=== PATIENT | male | born 1955 | race Caucasian/White ===

== ENCOUNTER 2016-02-11 14:29 | Inpatient (IN) | payer MEDICARE, OTHER ==
[~2016-02-11] VITALS: Ht 175.3 cm; Wt 136.8 kg
[~2016-02-11 14:29] MED LIST: ACETAMINOPHEN500 MG PO; AMLODIPINE BESYL5 MG PO; ASPIRIN EC325 MG PO; ATENOLOL25 MG PO; ATORVASTATIN CA40 MG PO; FISH OIL + D3 PO; LANTUS SOL100 UNITS/ SC; LIDODERM5 % TOP; LISINOPRIL10 MG PO; METFORMIN HCL500 MG PO; MUPIROCIN2 %; NEURONTIN400 MG PO; NOVOLOG PE100 UNITS/ SC; PERCOCET1 TA4 PO; PLAVIX75 MG PO; PRILOSEC20 MG PO; SERTRALINE HCL50 MG PO; ULORIC80 MG PO
--- NOTE | 2016-02-11 16:48 | DIAGNOSTIC IMAGING REPORT ---
PROCEDURE: XR CHEST 1 VIEW INDICATION: ANASARCA TECHNIQUE: Portable AP view 04:30 p.m. COMPARISON: 12/28/2015 FINDINGS: There is pleural thickening around the right apex and right upper lobe. No acute infiltrates. Heart and mediastinum are normal. Thorax is normal. IMPRESSION: 1. Right upper lobe and right apical pleural thickening. 2. No acute infiltrates.
--- NOTE | 2016-02-11 19:39 | ED NURSING NOTES ---
Clinical Report - Nurses [facility] [address] [place] [address] 02/11/2016 14:30 Patient: CARMITA LAURENT TRIAGE Triage time 14:43. Acuity: LEVEL 3. Chief Complaint: TESTICULAR PAIN and SCROTAL SWELLING. 14:48 02/11/16. SEPSIS SCREEN: Sepsis Screen. Negative (no infection suspected/documented). KHOA COMA SCORE: Khoa Coma Scale: 15- eyes open spontaneously (4); best verbal response- oriented x 4 (5); best motor response- obeys commands (6). --14:49 Erick Graff R.N. 14:43 02/11/16. BP: 159/94. HR: 73. RR: 24. O2 saturation: 95% on room air. Temp: 98.5 F (oral). Pain level now: 04/14. --14:49 Erick Graff R.N. Weight: 136 kg stated. Height/Length: 69 inches Per Patient. BMI: 44.3. --14:44 Erick Graff R.N. Medications AmLODIPine Besylate Oral 5 mg, daily. Atenolol Oral 25 mg, daily. Atorvastatin Calcium Oral 40 mg, daily. Clopidogrel Bisulfate Oral 75 mg. Gabapentin Oral (Capsule 400 mg) 1 capsule, 3x a day. Lantus Subcutaneous 45 units, every am and pm. Lisinopril Oral 40 mg, daily. Mapap Oral (Tablet 500 mg). MetFORMIN HCl Oral 500 mg, 2x a day. Omeprazole Oral 20 mg, daily. Oxycodone-Acetaminophen Oral. Proclitazone. Sertraline HCl Oral 50 mg, daily. Uloric Oral (Tablet 80 mg) 1 tablet, daily. --14:44 Erick Graff R.N. Allergies No Known Drug Allergy. --14:44 Erick Graff R.N. History Arrived by private vehicle. Historian: patient. Onset. (1 weeks ago). PAST MEDICAL HX: ( NOME in right ear). SOCIAL HX: Never smoker. Occasional alcohol use. No drug use. ABUSE ASSESSMENT: No report of abuse. --14:49 Erick Graff R.N. PROBLEMS: Hyperglycemia. Dyspnea. Fractured Phalanx (Toe). Gout. Lower Extremity Pain. Hypercholesterolemia. Tetanus Status. Cellulitis. Bronchitis. Chest Wall Pain. Gastroesophageal Reflux. Immunizations. Diabetes Mellitus. Hypertension. CVA - Cerebrovascular Accident. --14:45 Erick Garff R.N. Interventions To treatment room. --14:49 Erick Graff R.N. PHYSICAL ASSESSMENT 14:56 02/11/16. Ambulatory to room. GENERAL / NEURO / PSYCH: Alert. Oriented X 4. Appears in pain. ( NOME in right ear). HEENT: Mucous membranes are pink. RESPIRATORY: Breath sounds within normal limits. ( respirations labored with any activity, SOB). CVS: Normal heart rate and rhythm. ( Bilat LE 2+ edema). Capillary refill less than 2 seconds. GI / : Diminished bowel sounds in all quadrants. Right-sided and left-sided scrotal swelling with tenderness and erythema. No urethral discharge. ( Abd obese, firm, c/o generalized abd pain.). SKIN: Skin is warm and dry. --14:58 Erick Graff R.N. NURSING PROGRESS NOTES 17:19 02/11/2016 Site #1 started via IV in the right antecubital space with an 20g angiocath, with aseptic technique and good blood return; one attempt. Saline lock flushed with 10 mL saline. --17:24 Cassidy Paz R.N. EKG time: (17:29). EKG was performed by a tech and shown to the ED physician. --17:31 Jaki Vanessa 18:55 02/11/2016 Diltiazem IVP 10 mg given over 5 minute(s) via site #1. Allergies verified and confirmed 5 rights. IV patency established. IV site checked: no pain, redness, or swelling. IV flushed thoroughly pre- and post-medication administration. IVP given by RN. --19:05 Erick Graff R.N. 19:00 02/11/2016 Kayexalate (Sodium Polystyrene Sulfonate) PO Oral Suspension 30 gm given. Allergies verified and confirmed 5 rights. --19:05 Erick Graff R.N. 17:15 02/11/16. BP: 141/113. HR: 147. RR: 24. O2 saturation: 93% on room air. Pain level now: 04/14. --19:20 Erick Graff R.N. 17:45 02/11/16. BP: 123/72. HR: 150. RR: 24. O2 saturation: 94% on room air. Pain level now: 04/14. --19:21 Erick Graff R.N. 18:00 02/11/16. BP: 125/97. HR: 146. RR: 24. O2 saturation: 94% on room air. Pain level now: 04/14. --19:22 Erick Graff R.N. 18:30 02/11/16. BP: 140/95. HR: 144. RR: 24. O2 saturation: 93% on room air. Pain level now: 04/14. --19:23 Erick Graff R.N. 19:00 02/11/16. BP: 136/80. HR: 139. RR: 24. O2 saturation: 94% on room air. Pain level now: 04/14. --19:24 Erick Graff R.N. 19:26 02/11/2016 Diltiazem IVP 10 mg given over 2 minute(s) via site #1. Allergies verified and confirmed 5 rights. IV patency established. IV site checked: no pain, redness, or swelling. IV flushed thoroughly pre- and post-medication administration. IVP given by RN. --19:31 Torres Duong R.N. 19:32 02/11/16. BP: 126/83. HR: 126 (irregularly-irregular). RR: 18. O2 saturation: 93% on room air. --19:33 Torres Duong R.N. 20:2 02/11/16. Patient ID band checked for patient name, birthdate and medical record number: patient confirmed. Clean catch urine collected with return of jeanie-colored clear urine; odor is normal; sample sent to lab for urinalysis and culture. Specimen labeled in the presence of the patient. --20:26 Torres Duong R.N. 21:00 02/11/16. BP: 113/70. HR: 133. RR: 20. O2 saturation: 92% on room air. Pain level now: 03/17. --21:00 Torres Duong R.N. DISPOSITION / DISCHARGE 21:30. Disposition: observation in Acute Care. Transported via stretcher by nurse with IV. Report was given to a nurse via a phone call. Report included patient's care, treatment, medications, reviewed medication reconcilliation, and condition (including any recent changes or anticipated changes). All questions were answered. Report was acknowledged and care was transferred. (Dylon, PABLO). Patient's personal items include: shirt, pants and wallet; items were placed in belongings bag and transported with the patient. --23:27 Torres Duong R.N. 21:15 02/11/16. BP: 116/89. HR: 137 (irregularly-irregular and tachycardic). RR: 22. O2 saturation: 94% on room air. Temp: 98.7 F (oral). Pain level now: 04/14. --23:29 Torres Duong R.N. Departure time: 2129. --23:29 Torres Duong R.N. Locked/Released at 02/11/2016 23:30 by Torres Duong R.N.
--- NOTE | 2016-02-11 19:39 | ED ORDER SUMMARY ---
..... Patient: CARMITA LAURENT OrderSheet [facility] VisitID: [id number] [place] [address] 60y, M Registration Date/Time: 02/11/2016 ORDER SHEET Weight: 136.0 kg (stated) Allergies: No Known Drug Allergy GENERAL ORDERS: Chest 1V Urgent (16:02/11/2016 Sachin VILLALTA) (Ack 16:29 LTapper) (18:54 MCampbell) Trial Consultant (Continuous) (16:02/11/2016 Sachin VILLALTA) (17:11 Carloseck R.N.) CBC w Diff Urgent (16:02/11/2016 Sachin VILLALTA) (Ack 16:29 LTapper) (17:11 Carloseck R.N.) CMP Urgent (16:02/11/2016 Sachin VILLALTA) (Ack 16:29 LTapper) (17:11 DEEPIKAimbeck R.N.) UA-Culture if indicated Urgent (16:02/11/2016 Sachin VILLALTA) (Ack 16:29 LTapper) (20:25 Hailee R.N.) PT with INR Urgent (16:02/11/2016 Sachin VILLALTA) (Ack 16:29 LTapper) (17:11 Carloseck R.N.) PTT Urgent (16:02/11/2016 Sachin VILLALTA) (Ack 16:29 LTapper) (17:11 Carloseck R.N.) Amylase Urgent (16:02/11/2016 Sachin VILLALTA) (Ack 16:29 LTapper) (17:11 DEEPIKAimbeck R.N.) Lipase Urgent (16:02/11/2016 Sachin VILLALTA) (Ack 16:29 LTapper) (17:11 Carloseck R.N.) CPK Urgent (16:02/11/2016 Sachin VILLALTA) (Ack 16:29 LTapper) (17:11 Carloseck R.N.) Troponin-I Urgent (16:02/11/2016 Sachin VILLALTA) (Ack 16:29 LTapper) (17:11 JSimbeck R.N.) BNP Urgent (16:21 02/11/2016 Sachin VILLALTA) (Ack 16:29 LTapper) (17:11 Carloseck R.N.) Ammonia Level Urgent (16:21 02/11/2016 Sachin VILLALTA) (Ack 16:29 LTapper) (17:11 Carloseck R.N.) Pulse oximeter (16:21 02/11/2016 Sachin VILLALTA) (17:11 Carloseck R.N.) EKG - ER Stat (16:21 02/11/2016 Sachin VILLALTA) (Ack 16:29 LTapper) (17:28 Jus R.N.) TSH Urgent (17:36 02/11/2016 Sachin VILLALTA) (Ack 17:43 LTapper) (23:30 Hailee R.N.) Ethyl Alcohol Urgent (18:14 02/11/2016 Sachin VILLALTA) (Ack 18:29 LTapper) (23:30 Jacquielli R.N.) MEDICATION ORDERS: Kayexalate PO 30 gm/120mL (NOW) (18:18 02/11/2016 Sachin VILLALTA) (Ack 18:44 Jus R.N.) (19:05 Jus R.N.) IV FLUIDS: IV Saline Lock (16:21 02/11/2016 Sachin VILLALTA) (17:47 Jus R.N.) Diltiazem IV 10 mg (NOW) (18:18 02/11/2016 Sachin VILLALTA) (Ack 18:44 Jus R.N.) (19:05 Carloseck R.N.) Diltiazem IV 10 mg (HIGH ALERT MEDICATION, NOW) (19:30 02/11/2016 Hailee R.N. verbal order read back to Sachin VILLALTA) (19:31 Hailee R.N.) ORDER SHEET NOTES: [Electronically signed by Torres Duong R.N. (23:30 02/11/2016)] [Electronically signed by Giovani Soto MD (15:43 02/12/2016)] [Electronically locked/signed by Torres Duong R.N. (23:30 02/11/2016)]
--- NOTE | 2016-02-11 19:39 | ED ORDER SUMMARY ---
..... Patient: CARMITA LAURENT OrderSheet [facility] VisitID: [id number] [place] [address] 60y, M Registration Date/Time: 02/11/2016 ORDER SHEET Weight: 136.0 kg (stated) Allergies: No Known Drug Allergy GENERAL ORDERS: Chest 1V Urgent (16:02/11/2016 Sachin VILLALTA) (Ack 16:29 LTapper) (18:54 MCampbell) Dry Wall Plasterer (Continuous) (16:02/11/2016 Sachin VILLALTA) (17:11 Carloseck R.N.) CBC w Diff Urgent (16:02/11/2016 Sachin VILLALTA) (Ack 16:29 LTapper) (17:11 Carloseck R.N.) CMP Urgent (16:02/11/2016 Sachin VILLALTA) (Ack 16:29 LTapper) (17:11 DEEPIKAimbeck R.N.) UA-Culture if indicated Urgent (16:02/11/2016 Sachin VILLALTA) (Ack 16:29 LTapper) (20:25 Hailee R.N.) PT with INR Urgent (16:02/11/2016 Sachin VILLALTA) (Ack 16:29 LTapper) (17:11 Carloseck R.N.) PTT Urgent (16:02/11/2016 Sachin VILLALTA) (Ack 16:29 LTapper) (17:11 Carloseck R.N.) Amylase Urgent (16:02/11/2016 Sachin VILLALTA) (Ack 16:29 LTapper) (17:11 DEEPIKAimbeck R.N.) Lipase Urgent (16:02/11/2016 Sachin VILLALTA) (Ack 16:29 LTapper) (17:11 Carloseck R.N.) CPK Urgent (16:02/11/2016 Sachin VILLALTA) (Ack 16:29 LTapper) (17:11 Carloseck R.N.) Troponin-I Urgent (16:02/11/2016 Sachin VILLALTA) (Ack 16:29 LTapper) (17:11 JSimbeck R.N.) BNP Urgent (16:21 02/11/2016 Sachin VILLALTA) (Ack 16:29 LTapper) (17:11 Carloseck R.N.) Ammonia Level Urgent (16:21 02/11/2016 Sachin VILLALTA) (Ack 16:29 LTapper) (17:11 Carloseck R.N.) Pulse oximeter (16:21 02/11/2016 Sachin VILLALTA) (17:11 Carloseck R.N.) EKG - ER Stat (16:21 02/11/2016 Sachin VILLALTA) (Ack 16:29 LTapper) (17:28 Jus R.N.) TSH Urgent (17:36 02/11/2016 Sachin VILLALTA) (Ack 17:43 LTapper) (23:30 Hailee R.N.) Ethyl Alcohol Urgent (18:14 02/11/2016 Sachin VILLALTA) (Ack 18:29 LTapper) (23:30 Jacquielli R.N.) MEDICATION ORDERS: Kayexalate PO 30 gm/120mL (NOW) (18:18 02/11/2016 Sachin VILLALTA) (Ack 18:44 Jus R.N.) (19:05 Jus R.N.) IV FLUIDS: IV Saline Lock (16:21 02/11/2016 Sachin VILLALTA) (17:47 Jus R.N.) Diltiazem IV 10 mg (NOW) (18:18 02/11/2016 Sachin VILLALTA) (Ack 18:44 Jus R.N.) (19:05 Carloseck R.N.) Diltiazem IV 10 mg (HIGH ALERT MEDICATION, NOW) (19:30 02/11/2016 Hailee R.N. verbal order read back to Sachin VILLALTA) (19:31 Hailee R.N.) ORDER SHEET NOTES: [Electronically signed by Torres Duong R.N. (23:30 02/11/2016)] [Electronically signed by Giovani Soto MD (15:43 02/12/2016)] [Electronically locked/signed by Torres Duong R.N. (23:30 02/11/2016)]
--- NOTE | 2016-02-11 19:39 | ED CLINICAL REPORT ---
Clinical Report - Physicians/Mid Levels [facility] [address] [place] [address] 02/11/2016 14:30 Patient: CARMITA LAURENT Time Seen: 14:40. Arrived- By private vehicle. Historian- patient. History limited by vague historian. HISTORY OF PRESENT ILLNESS Chief Complaint: scrotal swelling. At its maximum, severity described as severe. When seen in the E.D., severity described as severe. This started about 1 week ago and is still present and now worse. It was gradual in onset and has been constant. (. The patient presents with complaints of increased swelling of his scrotum abdomen and legs over the past week. He says he's never experienced any symptoms like this previously. He does have some Concomitant shortness of breath but says that this is mild.). REVIEW OF SYSTEMS No cough. He has had mild difficulty breathing. He has had severe pedal edema involving the right and left leg. All systems otherwise negative, except as recorded above. PAST HISTORY Problems: Hyperglycemia. Dyspnea. Fractured Phalanx (Toe). Gout. Lower Extremity Pain. Hypercholesterolemia. Cellulitis. Bronchitis. Chest Wall Pain. Gastroesophageal Reflux. Diabetes Mellitus. Hypertension. CVA - Cerebrovascular Accident. Medications: AmLODIPine Besylate Oral 5 mg, daily. Atenolol Oral 25 mg, daily. Atorvastatin Calcium Oral 40 mg, daily. Clopidogrel Bisulfate Oral 75 mg. Gabapentin Oral (Capsule 400 mg) 1 capsule, 3x a day. Lantus Subcutaneous 45 units, every am and pm. Lisinopril Oral 40 mg, daily. Mapap Oral (Tablet 500 mg). MetFORMIN HCl Oral 500 mg, 2x a day. Omeprazole Oral 20 mg, daily. Oxycodone-Acetaminophen Oral. Proclitazone. Sertraline HCl Oral 50 mg, daily. Uloric Oral (Tablet 80 mg) 1 tablet, daily. Allergies: No Known Drug Allergy. SOCIAL HISTORY Never smoker. Occasional alcohol use. No drug use. FAMILY HISTORY Denies family medical history. ADDITIONAL NOTES The nursing notes have been reviewed. PHYSICAL EXAM Vital Signs: 02/11/2016 14:43 BP: 159/94. HR: 73. RR: 24. O2 saturation: 95%. Temp: 98.5 F. Pain level now: 04/14. Have been reviewed. Appearance: Alert. Eyes: Pupils equal, round and reactive to light. ENT: Pharynx normal. Neck: Neck supple. CVS: Normal heart rate and rhythm. Heart sounds normal. Respiratory: Decreased air movement. Abdomen: Tenderness. Distention (with a positive fluid wave). Back: Normal inspection. : Severe scrotal swelling. No tenderness, induration, erythema, fluctuance or ulceration. Transillumination possible. Skin: Rash present on the perineum. The rash is macular. Extremities: Bilateral 4+ pitting edema of the lower extremities involving both feet, both ankles and both lower legs. Neuro: Mildly altered mental status: confused. Patient slow to respond. LABS, X-RAYS, AND EKG EKG: Rate: 152. Atrial fibrillation. Non-specific ST segment / T wave abnormalities. Changes present when compared to prior EKG. (02 Dec 2014). The study has been independently viewed by me. Chest X-ray: (IMPRESSION: 1. Right upper lobe and right apical pleural thickening. 2. No acute infiltrates.). The X-rays were interpreted by the radiologist and contemporaneously by me. Laboratory Tests: CBC w Diff: (JAN: 02/11/2016 17:00) ( MsgRcvd 02/11/2016 17:33) Final results Test Result Flag Units (Reference) WHITE BLOOD COUNT 7.8 K/uL (4.5-11.5) RED BLOOD COUNT 3.32 L M/uL (4.50-5.90) HEMOGLOBIN 7.5 L gm/dL (13.5-17.5) HEMATOCRIT 33.3 L % (41.0-53.0) MEAN CELL VOLUME 100 fL (80-100) MEAN CORPUSCULAR HGB 23 L pg (26-34) MEAN CORPUSCULAR HGB CONC 23 L g/dL (31-37) RED CELL DISTRIBUTION WIDTH 14.0 % (11.6-14.8) PLATELET COUNT 162 K/uL (150-400) PT with INR: (JAN: 02/11/2016 17:00) ( MsgRcvd 02/11/2016 18:01) Final results Test Result Flag Units (Reference) INR 1.0 (0.8-1.2) Low Intensity Therapy: INR 1.5-2.0 PT range 18.5-23.1Mod.Intensity Therapy: INR 2.0-3.0 PT range 23.1-31.5High Intensity Therapy: INR 2.5-3.5 PT range 27.4-35.5High Intensity Therapy 2: INR 3.0-4.0 PT range 31.5-39.3 APTT < 21 L SECONDS (24-34) Ethyl Alcohol: (JAN: 02/11/2016 17:00) ( [facility] 02/11/2016 18:25) Final results Test Result Flag Units (Reference) ETHYL ALCOHOL <3 L mg/dL (3-10) Ammonia Level: (JAN: 02/11/2016 17:00) ( [facility] 02/11/2016 17:36) Final results Test Result Flag Units (Reference) AMMONIA 38 H umol/L (11-32) BNP: (JAN: 02/11/2016 17:00) ( [facility] 02/11/2016 17:51) Final results Test Result Flag Units (Reference) B-TYPE NATRIURETIC PEPTIDE 104 H pg/ml (5-100) CMP: (JAN: 02/11/2016 17:00) ( [facility] 02/11/2016 17:36) Final results Test Result Flag Units (Reference) GLUCOSE 95 mg/dL (70-110) BUN 19 H mg/dL (7-18) CREATININE 1.0 mg/dL (0.6-1.3) Estimated GFR >60 mL/min Estimated GFR- >60 mL/min Note: Persistent reduction over 3 months in eGFR<60 mL/min/1.73 m2 defines CKD. Patients with eGFR values>=60 mL/min/1.73 m2 may also have CKD if evidence ofpersistent proteinuria. Additional information may be foundat www.kidney.org. SODIUM 143 mmol/L (136-145) POTASSIUM 5.0 mmol/L (3.5-5.1) CHLORIDE 109 H mmol/L (98-107) CARBON DIOXIDE 27 mmol/L (21-32) CALCIUM 8.7 mg/dL (8.5-10.1) TOTAL PROTEIN 7.1 g/dL (6.4-8.2) ALBUMIN 3.1 L g/dL (3.3-5.0) BILIRUBIN, TOTAL 0.3 mg/dL (0.0-1.0) ALKALINE PHOSPHATASE 95 U/L (46-116) AST (SGOT) 29 U/L (15-37) ALT (SGPT) 54 U/L (12-78) LIPASE 140 U/L (73-393) AMYLASE 46 U/L (25-115) CPK 117 U/L (24-260) TROPONIN I <0.05 ng/mL (0.00-1.5) TROPONIN REFERENCE RANGE:<0.1 NEGATIVE0.1-1.5 INDETERMINANT>1.5 POSITIVE . PROGRESS AND PROCEDURES Discussed case with on-call health care provider, (Pavithra - He saw the patient n the ER). Reviewed test results and need for additional work-up. Agreed upon treatment plan, need for patient follow-up and decision to place in observation. Patient/family counseled. Old medical records reviewed. Disposition: Admitted. CLINICAL IMPRESSION New onset atrial fibrillation. Anasarca. (Electronically signed by Giovani Soto MD 02/12/2016 15:43)
--- NOTE | 2016-02-11 21:06 | Progress Note ---
Subjective General 60 year old who presented to the ER with swelling to his groin and found to have afib RVR. Hx of stroke,HTN, DM. Plan to increse on beta candida, stop ca Channel candida, echo, diuresis.
[2016-02-11 21:53] VITALS: BP 127/77
--- NOTE | 2016-02-11 22:40 | HISTORY AND PHYSICAL ---
ADMITTED: 02/11/2016 CHIEF COMPLAINT: 1. Swelling of his groin and penis HISTORY OF PRESENT ILLNESS: The patient is a 60-year-old male who presented to the emergency department after having significant swelling of his genitalia. He was having some swelling to the point of discomfort. This has been going on for the last 1 week or so and got to the point that he needed to have evaluation. He otherwise has been feeling pretty well. MEDICAL/SURGICAL HISTORY: Past medical history: He has had hyperglycemia, dyspnea, fractured phalanx, gout, lower extremity pain, hypercholesterolemia, cellulitis, bronchitis, chest wall pain, GERD, diabetes, hypertension, CVA. Past surgical history: Appendectomy. MEDICATIONS: 1. Amlodipine 5 mg p.o. daily. 2. Atenolol 25 mg p.o. daily. 3. Atorvastatin 40 mg p.o. daily. 4. Plavix 75 mg p.o. daily. 5. Gabapentin 400 mg p.o. t.i.d. 6. Lantus 45 mg p.o. a.m., at bedtime. 7. Lisinopril 40 mg p.o. daily. 8. Tylenol 500 mg p.o. q.4 hours p.r.n. pain. 9. Metformin 500 mg p.o. b.i.d. 10. Omeprazole 20 mg p.o. daily. 11. Oxycodone 5/325 one p.o. 4 hours p.r.n. pain. 12. Pioglitazone, question dosing 13. Sertraline 50 mg p.o. daily. 14. Uloric 80 mg 1 p.o. daily. ALLERGIES: 1. NONE KNOWN. SOCIAL HISTORY: He is single. He does not smoke, does not drink, does not use any drugs. FAMILY HISTORY: Mom had brain tumor, of a stroke. CODE STATUS: FULL. REVIEW OF SYSTEMS: He states that he has got some chronic left leg swelling. He also has a history of stroke with right facial droop. He has had some dizziness with standing recently and some nausea as well. He otherwise denies any increase in chronic medical problems such as difficulty breathing, which he always has a little bit. He has got no cough. He has had pedal edema in the past. PHYSICAL EXAMINATION: GENERAL: He is an alert male who appears to be in no significant distress. He is oriented x3. He is alert. VITAL SIGNS: Blood pressure of 159/94, heart rate of 73, respirations 24, saturating 95% on room air, temperature is 98.5. HEENT: Pupils equal, round, reactive to light. Oropharynx is clear. He has got a little bit of a right facial droop. NECK: Supple without lymphadenopathy. HEART: Slightly irregularly irregular. ABDOMEN: Swollen, obese and no significant tenderness. BACK: Normal inspection. GENITOURINARY: Has lots of scrotal swelling and induration, some mild erythema as well, no fluctuance or ulceration. SKIN: There is a rash on his perineum that is macular, giving redness in color. EXTREMITIES: 4+ edema bilaterally at both legs, shins, feet. LAB/IMAGING: EKG: Shows atrial fibrillation with a rapid ventricular rate in the 150s, nonspecific ST-T wave changes. Chest x-ray: Shows right upper lobe and right apical thickening, no acute infiltrates. White count of 7.8, hematocrit of 33.3, platelets of 162,000. INR of 1.0. PTT less than 21. Alcohol less than 3. Ammonia 38. BNP of 104. Glucose 95, BUN of 19, creatinine of 1, sodium 143, potassium 5.0, chloride 109, HCO3 27, calcium 8.7, total protein 7.1. Albumin 3.1, total bili 0.3, alk phos 95, AST of 29, ALT of 54, lipase 140, amylase 46. CPK of 117. Troponin I less than 0.05. IMPRESSION: 1. New onset atrial fibrillation with a rapid ventricular rate. 2. Diabetes. 3. Anasarca. 4. Hypertension. 5. History of stroke. PLAN: 1. We will stop pioglitazone, as well as amlodipine as both these may cause increased swelling. 2. Check on an echocardiogram. 3. Start Lasix. 4. Increase on beta-candida with the goal heart rate 90-120 range. He is currently not having any symptoms. 5. Rule out myocardial infarction and anticipate that he will be in the hospital a couple days, getting his heart rate under better control, as well as getting the studies needed for his new onset atrial fibrillation. Admit him as an inpatient. 6. Code status: FULL.
[2016-02-12 02:30] VITALS: BP 124/87
[2016-02-12 07:26] VITALS: BP 145/78; BP 15/78
[2016-02-12 09:48] VITALS: BP 141/92
[2016-02-12 14:35] VITALS: BP 148/101
--- NOTE | 2016-02-12 15:05 | Progress Note ---
Subjective General Pt. is admitted with marked scrotal edema and a fib with RVR. He was stgarted on metoprolol. Heart rate this PM has gone up to 130-150. Pt. is feeling OK. No major weakness or chest pain. Other problems include DM and remote CVA and hypertension. Constitutional Weakness. Eyes Denies: Vision Change. Respiratory SOB w/exertion. Cardiovascular Light-headedness. Gastrointestinal Denies: Nausea, Vomiting, Abdominal Pain, Diarrhea. Genitourinary Frequency. Skin Denies: Rash, Lesions, Bruising. Neurological Weakness. Denies: Change in speech, Confusion. Physical Exam Vital Signs / I&Os Vital Signs Date Time Temp Pulse Resp B/P Pulse O2 O2 Flow FiO2 Ox Delivery Rate 02/11 1435 98.4 151 22 148/101 96 Nasal 2.0 Cannula 02/11 0948 63 24 141/92 96 Nasal 2.0 Cannula 02/11 0915 Nasal 2.0 Cannula 02/11 07 97.9 76 20 145/78 95 Nasal 2.0 Cannula 02/11 0230 98.6 80 18 124/87 95 Nasal 2.0 Cannula 02/11 0000 2.0 02/10 2153 97.7 119 20 127/77 97 Nasal 2.0 Cannula I&O 02/10 0800 02/10 1600 02/11 0000 Intake Total Output Total Balance General Appearance Alert, Oriented X3, Cooperative, No acute distress Lungs Clear to auscultation, Normal air movement Cardiovascular irreg-irreg no distinct M. Abdomen Normal bowel sounds, Soft, No tenderness Pelvic marked edema of scrotum and penis Extremities +2-+3 edema L, +2 edema R Neurological Normal speech, Sensation intact, R facial weakness LAB Results Laboratory Tests 02/10 02/10 02/10 02/10 1700 1700 1700 1700 Chemistry Plasma Sodium (136 - 145 mmol/L) 143 Plasma Potassium (3.5 - 5.1 mmol/L) 5.0 Plasma Chloride (98 - 107 mmol/L) 109 CO2 (Enzymatic) (21 - 32 mmol/L) 27 BUN (7 - 18 mg/dL) 19 Creatinine (0.6 - 1.3 mg/dL) 1.0 Est GFR ( Amer) (mL/min) >60 Est GFR (Non-Af Amer) (mL/min) >60 Glucose (70 - 110 mg/dL) 95 Plasma Calcium (8.5 - 10.1 mg/dL) 8.7 Total Bilirubin (0.0 - 1.0 mg/dL) 0.3 AST (15 - 37 U/L) 29 ALT (12 - 78 U/L) 54 Alkaline Phosphatase (46 - 116 U/L) 95 Ammonia (11 - 32 umol/L) 38 Creatine Kinase (24 - 260 U/L) 117 Troponin (0.00 - 1.5 ng/mL) <0.05 B-Natriuretic Peptide (5 - 100 pg/ml) 104 Total Protein (6.4 - 8.2 g/dL) 7.1 Albumin (3.3 - 5.0 g/dL) 3.1 Amylase (25 - 115 U/L) 46 Lipase (73 - 393 U/L) 140 TSH 3rd Generation (0.30 - 3.74 uIU/mL) 2.079 Coagulation INR (0.8 - 1.2) 1.0 APTT (24 - 34 SECONDS) < 21 Hematology WBC (4.5 - 11.5 K/uL) 7.8 RBC (4.50 - 5.90 M/uL) 3.32 Hgb (13.5 - 17.5 gm/dL) 7.5 Hct (41.0 - 53.0 %) 33.3 MCV (80 - 100 fL) 100 MCH (26 - 34 pg) 23 RDW (11.6 - 14.8 %) 14.0 Plt Count, EDTA (150 - 400 K/uL) 162 PUBS MCHC (31 - 37 g/dL) 23 Toxicology Plasma/Serum Ethyl Alc (3 - 10 mg/dL) <3 02/100 0502 Chemistry Troponin (0.00 - 1.5 ng/mL) <0.05 Cancelled Urines Urine Color YELLOW Urine Appearance CLEAR Urine pH (5.0 - 8.0) 5.5 Ur Specific [place] (1.010 - 1.030) >= 1.030 Urine Protein (NEGATIVE) 3+ Urine Ketones (NEGATIVE) NEGATIVE Urine Blood (NEGATIVE) TRACE-INTACT Urine Nitrite (NEGATIVE) NEGATIVE Urine Bilirubin (NEGATIVE) NEGATIVE Urine Urobilinogen (0.2 - 1.0 EU/dL) 0.2 Ur Leukocyte Esterase (NEGATIVE) NEGATIVE Urine RBC (0 - 1 rbc/hpf) 1-3 Urine WBC (0 - 1 wbc/hpf) RARE Ur Epithelial Cells (0 - 5 EPI/hpf) 0-1 Urine Bacteria (NONE SEEN) NONE SEEN Urine Glucose (NEGATIVE) 1+ Urine Comment CULT NOT INDICATED 02/11 02/11 0541 1258 Chemistry Plasma Sodium (136 - 145 mmol/L) 145 Plasma Potassium (3.5 - 5.1 mmol/L) 3.4 Plasma Chloride (98 - 107 mmol/L) 112 CO2 (Enzymatic) (21 - 32 mmol/L) 28 BUN (7 - 18 mg/dL) 21 Creatinine (0.6 - 1.3 mg/dL) 1.2 Est GFR ( Amer) (mL/min) >60 Est GFR (Non-Af Amer) (mL/min) >60 Glucose (70 - 110 mg/dL) 59 Plasma Calcium (8.5 - 10.1 mg/dL) 8.2 Troponin (0.00 - 1.5 ng/mL) <0.05 0.06 Hematology WBC (4.5 - 11.5 K/uL) 12.9 RBC (4.50 - 5.90 M/uL) 3.64 Hgb (13.5 - 17.5 gm/dL) 11.8 Hct (41.0 - 53.0 %) 36.7 MCV (80 - 100 fL) 101 MCH (26 - 34 pg) 33 RDW (11.6 - 14.8 %) 14.4 Neut % (Auto) (50 - 75 %) 53.8 Lymph % (Auto) (25 - 40 %) 34.7 [place] % (Auto) (3 - 14 %) 8.3 Eos % (Auto) (0 - 4 %) 2.6 Baso % (Auto) (0 - 2 %) 0.6 Plt Count, EDTA (150 - 400 K/uL) 223 PUBS MCHC (31 - 37 g/dL) 32 Assessment and Plan Problem List 1. Atrial fibrillation with RVR Plan Will give metoprolol 5 mg IV now and 25 mg po. Will start digoxin. May need diltiazem drip if incrased po does not work. 2. Hypertension Status Chronic Onset Date Unknown Plan Bp upper range of nl. May improve with increased metoprolol 3. Diabetes Status Chronic Onset Date Unknown Plan BS OK with current Tx.Continue with no changes. 4. CVA (cerebral vascular accident) Plan Continjue Xarelto 5. Anasarca Plan Will try adding metolazolne and giving IV lasix this pm. Add po K+.
--- NOTE | 2016-02-12 15:43 | ED MAR SUMMARY ---
..... Medication Administration Record [facility] [address] [place] [address] Patient: CARMITA LAURENT Visit ID: [id number] 60y, M Weight: 136.0 kg Height/Length: 69 in BMI: 44.3 ALLERGIES: No Known Drug Allergy Given 18:55 02/11/2016 Erick Graff R.N. Medication Administered: DILTIAZEM [IVP], Dose: 10 mg IVP over 5 minute(s), Site: #1 right AC. Medication Ordered: Diltiazem IV 10 mg (NOW). Given 19:00 02/11/2016 Erick Graff R.N. Medication Administered: KAYEXALATE [PO] (SODIUM POLYSTYRENE SULFONATE), Dose: 30 gm Oral Suspension PO. Medication Ordered: Kayexalate PO 30 gm/120mL (NOW). Given 19:26 02/11/2016 Torres Duong R.N. Medication Administered: DILTIAZEM [IVP], Dose: 10 mg IVP over 2 minute(s), Site: #1 right AC. Medication Ordered: Diltiazem IV 10 mg (HIGH ALERT MEDICATION, NOW).
--- NOTE | 2016-02-12 15:43 | ED MAR SUMMARY ---
..... Medication Administration Record [facility] [address] [place] [address] Patient: CARMITA LAURENT Visit ID: [id number] 60y, M Weight: 136.0 kg Height/Length: 69 in BMI: 44.3 ALLERGIES: No Known Drug Allergy Given 18:55 02/11/2016 Erick Graff R.N. Medication Administered: DILTIAZEM [IVP], Dose: 10 mg IVP over 5 minute(s), Site: #1 right AC. Medication Ordered: Diltiazem IV 10 mg (NOW). Given 19:00 02/11/2016 Erick Graff R.N. Medication Administered: KAYEXALATE [PO] (SODIUM POLYSTYRENE SULFONATE), Dose: 30 gm Oral Suspension PO. Medication Ordered: Kayexalate PO 30 gm/120mL (NOW). Given 19:26 02/11/2016 Torres Duong R.N. Medication Administered: DILTIAZEM [IVP], Dose: 10 mg IVP over 2 minute(s), Site: #1 right AC. Medication Ordered: Diltiazem IV 10 mg (HIGH ALERT MEDICATION, NOW).
--- NOTE | 2016-02-12 15:43 | ED MED RECONCILIATION SUMMARY ---
Patient: CARMITA LAURENT Medication Reconciliation Report [facility] VisitID: [id number] [place] [address] 60y, M Registration Date/Time: 02/11/2016 Weight: 136.0 kg Height/Length: 69 in. BMI: 44.3 ALLERGIES: No Known Drug Allergy The patient's Home Medications are listed below: THE FOLLOWING MEDICATIONS NEED TO BE RECONCILED: AmLODIPine Besylate Oral 5 mg, daily Atenolol Oral 25 mg, daily Atorvastatin Calcium Oral 40 mg, daily Clopidogrel Bisulfate Oral 75 mg Gabapentin Oral (400 mg) 1 capsule, 3x a day Lantus Subcutaneous 45 units, every am and pm Lisinopril Oral 40 mg, daily Mapap Oral (500 mg) MetFORMIN HCl Oral 500 mg, 2x a day Omeprazole Oral 20 mg, daily Oxycodone-Acetaminophen Oral Proclitazone Sertraline HCl Oral 50 mg, daily Uloric Oral (80 mg) 1 tablet, daily The source(s) of the original Home Medication information: Not obtained. The following Medications were given to the patient in the Emergency Department: Diltiazem [IVP] IVP 10 mg, administered: 02/11/2016 6:55:00 PM Kayexalate [PO] PO 30 gm, administered: 02/11/2016 7:00:00 PM Diltiazem [IVP] IVP 10 mg, administered: 02/11/2016 7:26:00 PM The following Medications were prescribed to the patient: None.
--- NOTE | 2016-02-12 15:43 | ED DISCHARGE INSTRUCTIONS ---
Patient: CARMITA LAURENT Kayy General Instructions [facility] VisitID: [id number] [address] [place] [address] 60y, M Registration Date/Time: 02/11/2016 New onset atrial fibrillation. Anasarca. (Electronically signed by Gioavni Soto MD 02/12/2016 15:43)
--- NOTE | 2016-02-12 15:43 | ED MED RECONCILIATION SUMMARY ---
Patient: CARMITA LAURENT Medication Reconciliation Report [facility] VisitID: [id number] [place] [address] 60y, M Registration Date/Time: 02/11/2016 Weight: 136.0 kg Height/Length: 69 in. BMI: 44.3 ALLERGIES: No Known Drug Allergy The patient's Home Medications are listed below: THE FOLLOWING MEDICATIONS NEED TO BE RECONCILED: AmLODIPine Besylate Oral 5 mg, daily Atenolol Oral 25 mg, daily Atorvastatin Calcium Oral 40 mg, daily Clopidogrel Bisulfate Oral 75 mg Gabapentin Oral (400 mg) 1 capsule, 3x a day Lantus Subcutaneous 45 units, every am and pm Lisinopril Oral 40 mg, daily Mapap Oral (500 mg) MetFORMIN HCl Oral 500 mg, 2x a day Omeprazole Oral 20 mg, daily Oxycodone-Acetaminophen Oral Proclitazone Sertraline HCl Oral 50 mg, daily Uloric Oral (80 mg) 1 tablet, daily The source(s) of the original Home Medication information: Not obtained. The following Medications were given to the patient in the Emergency Department: Diltiazem [IVP] IVP 10 mg, administered: 02/11/2016 6:55:00 PM Kayexalate [PO] PO 30 gm, administered: 02/11/2016 7:00:00 PM Diltiazem [IVP] IVP 10 mg, administered: 02/11/2016 7:26:00 PM The following Medications were prescribed to the patient: None.
--- NOTE | 2016-02-12 15:43 | ED DISCHARGE INSTRUCTIONS ---
Patient: CARMITA LAURENT Kayy General Instructions [facility] VisitID: [id number] [address] [place] [address] 60y, M Registration Date/Time: 02/11/2016 New onset atrial fibrillation. Anasarca. (Electronically signed by Giovani Soto MD 02/12/2016 15:43)
[2016-02-12 18:11] VITALS: BP 92/52
[2016-02-12 18:41] VITALS: BP 121/67
[2016-02-13 00:14] VITALS: BP 121/55
[2016-02-13 02:01] VITALS: BP 143/77
[2016-02-13 07:55] VITALS: BP 143/83
--- NOTE | 2016-02-13 09:12 | Progress Note ---
Subjective General 60 year old who presented to the ER with swelling to his groin and found to have afib RVR. Hx of stroke,HTN, DM. Increased on beta candida, stop ca Channel candida, echo-was ok, diuresis Patient states that he is doing at this time. Groin a little better less swollen and softer. No cp,sob. Physical Exam Vital Signs / I&Os Vital Signs Date Time Temp Pulse Resp B/P Pulse O2 O2 Flow FiO2 Ox Delivery Rate 02/12 0755 98.6 67 24 143/83 92 Nasal 2.5 Cannula 02/12 0201 98.8 67 26 143/77 96 Nasal 2.5 Cannula 02/12 0014 98.8 76 21 121/55 91 Nasal 2.5 Cannula 02/11 2045 Nasal 2.5 Cannula 02/11 2040 2.5 02/11 1841 98.8 75 28 121/67 95 Nasal 2.5 Cannula 02/11 1811 98.8 83 20 92/52 98 Bipap 45 02/11 1518 148 02/11 1435 98.4 151 22 148/101 96 Nasal 2.0 Cannula 02/11 1006 2.0 02/11 0948 63 24 141/92 96 Nasal 2.0 Cannula 02/11 0915 Nasal 2.0 Cannula I&O 02/12 0000 02/11 1600 02/11 0800 Intake Total 360 960 600 Output Total 875 1000 550 Balance -515 -40 50 General Appearance Alert, Cooperative Lungs Clear to auscultation, Normal air movement Cardiovascular Regular rate and rhythm Abdomen Soft, obese non tender Pelvic swollen scrotum and penis Extremities +1 edema. LAB Results Laboratory Tests 02/12 02/11 0400 1258 Chemistry Plasma Sodium (136 - 145 mmol/L) 144 Plasma Potassium (3.5 - 5.1 mmol/L) 3.7 Plasma Chloride (98 - 107 mmol/L) 109 CO2 (Enzymatic) (21 - 32 mmol/L) 29 BUN (7 - 18 mg/dL) 29 Creatinine (0.6 - 1.3 mg/dL) 1.3 Est GFR ( Amer) (mL/min) >60 Est GFR (Non-Af Amer) (mL/min) 59.85 Glucose (70 - 110 mg/dL) 191 Plasma Calcium (8.5 - 10.1 mg/dL) 8.2 Plasma Magnesium (1.8 - 2.4 mg/dL) 1.3 Troponin (0.00 - 1.5 ng/mL) 0.06 Hematology WBC (4.5 - 11.5 K/uL) 13.4 RBC (4.50 - 5.90 M/uL) 3.55 Hgb (13.5 - 17.5 gm/dL) 11.5 Hct (41.0 - 53.0 %) 35.7 MCV (80 - 100 fL) 101 MCH (26 - 34 pg) 33 RDW (11.6 - 14.8 %) 14.4 Neut % (Auto) (50 - 75 %) 48.1 Lymph % (Auto) (25 - 40 %) 37.3 [place] % (Auto) (3 - 14 %) 10.6 Eos % (Auto) (0 - 4 %) 3.3 Baso % (Auto) (0 - 2 %) 0.7 Plt Count, EDTA (150 - 400 K/uL) 202 PUBS MCHC (31 - 37 g/dL) 32 Assessment and Plan Problem List 1. Diabetes Status Chronic Onset Date Unknown Plan Stable overall. BS up and down some. 2. Anasarca Plan Has some improvement increase on the diuretics. 3. Atrial fibrillation with RVR Plan Is now in sinus. Watch on bmp. Check sleep eval after d/c
[2016-02-13 11:08] VITALS: BP 134/75
[2016-02-13 18:50] VITALS: BP 145/77
[2016-02-13 23:27] VITALS: BP 144/82
[2016-02-14 03:08] VITALS: BP 149/79
[2016-02-14 06:50] VITALS: BP 135/91
[2016-02-14 11:24] VITALS: BP 145/79
[2016-02-14 14:40] VITALS: BP 126/72
[2016-02-14 18:35] VITALS: BP 125/71
--- NOTE | 2016-02-14 19:12 | Progress Note ---
Subjective General patient is seen at the bedside says he is feeling better, anasarca improving, now in normal sinus rhythm with normal rate, renal function is elevated Constitutional Denies: Fever, Chills, Sweats, Weakness. Eyes Denies: Pain, Conjunctival Inflammation, Eyelid Inflammation, Redness. ENT Denies: Nasal Discharge, Nasal Congestion, Mouth Pain, Mouth Swelling, Throat Pain, Throat Swelling. Respiratory SOB w/exertion. Denies: Cough, Wheezing, Hemoptysis. Cardiovascular Edema. Denies: Chest Pain, Palpitations, Orthopnea, PND. Gastrointestinal Denies: Nausea, Vomiting, Abdominal Pain, Diarrhea, Constipation. Genitourinary Denies: Dysuria (c/o scrotal swelling/no pain), Frequency, Incontinence, Hematuria. Musculoskeletal Denies: Back Pain. Skin Denies: Rash, Lesions, Jaundice. Neurological Denies: Weakness, Numbness, Incoordination, Change in speech, Confusion, Seizures. Physical Exam Vital Signs / I&Os Vital Signs Date Time Temp Pulse Resp B/P Pulse O2 O2 Flow FiO2 Ox Delivery Rate 02/13 1835 99.0 63 24 125/71 93 Nasal 3.0 Cannula 02/13 1440 98.1 61 20 126/72 94 Nasal 3.0 Cannula 02/13 1356 64 02/13 1124 145/79 97 Nasal 3.0 Cannula 02/13 1048 97.9 74 19 95 Nasal 3.0 Cannula 02/13 0800 Nasal 3.0 Cannula 02/13 0650 98.6 63 22 135/91 94 Room Air 02/13 0308 97.7 70 24 149/79 94 Nasal 3.0 Cannula 02/13 0130 3.0 02/13 0030 93 Nasal 3.0 Cannula 02/12 2327 97.7 71 23 144/82 94 Room Air 02/12 1928 Room Air I&O 02/12 0800 02/12 1600 02/13 0000 Intake Total 360 1049 Output Total 900 900 750 Balance -900 -540 299 General Appearance Alert, Oriented X3, No acute distress HEENT Normal exam, PERRLA, Moist mucous membranes Lungs bilaterla crackles Neck Normal exam, No JVD Cardiovascular Regular rate and rhythm, Normal S1 and S2 Abdomen Normal bowel sounds, Soft, No tenderness, No guarding Extremities No edema Skin No Significant Lesions Neurological No lateralizing signs LAB Results Laboratory Tests 02/13 02/13 0405 0405 Chemistry Plasma Sodium (136 - 145 mmol/L) 141 Plasma Potassium (3.5 - 5.1 mmol/L) 3.7 Plasma Chloride (98 - 107 mmol/L) 106 CO2 (Enzymatic) (21 - 32 mmol/L) 30 BUN (7 - 18 mg/dL) 36 Creatinine (0.6 - 1.3 mg/dL) 1.4 Est GFR ( Amer) (mL/min) >60 Est GFR (Non-Af Amer) (mL/min) 54.94 Glucose (70 - 110 mg/dL) 204 Plasma Calcium (8.5 - 10.1 mg/dL) 8.4 Plasma Magnesium (1.8 - 2.4 mg/dL) 1.4 Total Bilirubin (0.0 - 1.0 mg/dL) 0.3 AST (15 - 37 U/L) 35 ALT (12 - 78 U/L) 67 Alkaline Phosphatase (46 - 116 U/L) 86 Total Protein (6.4 - 8.2 g/dL) 6.7 Albumin (3.3 - 5.0 g/dL) 2.6 Hematology WBC (4.5 - 11.5 K/uL) 12.4 RBC (4.50 - 5.90 M/uL) 3.65 Hgb (13.5 - 17.5 gm/dL) 11.9 Hct (41.0 - 53.0 %) 36.7 MCV (80 - 100 fL) 101 MCH (26 - 34 pg) 33 RDW (11.6 - 14.8 %) 13.7 Neut % (Auto) (50 - 75 %) 49.0 Lymph % (Auto) (25 - 40 %) 34.8 [place] % (Auto) (3 - 14 %) 10.9 Eos % (Auto) (0 - 4 %) 4.6 Baso % (Auto) (0 - 2 %) 0.7 Plt Count, EDTA (150 - 400 K/uL) 205 PUBS MCHC (31 - 37 g/dL) 32 Toxicology Digoxin (0.9 - 2.0 ng/mL) 0.6
[2016-02-14 23:27] VITALS: BP 148/71
[2016-02-15 03:31] VITALS: BP 138/79
[2016-02-15 07:20] VITALS: BP 137/73
[2016-02-15 10:26] VITALS: BP 123/68
[2016-02-15 15:21] VITALS: BP 132/84
--- NOTE | 2016-02-15 17:32 | DIAGNOSTIC IMAGING REPORT ---
REFERRING PHYSICIAN/PROVIDER: Ramon Arshad MD CONSULTING [employer]ERERS HELPER: Baldemar Lorenzo MD PROCEDURE: M-mode 2D echocardiography with spectral and color flow Doppler TECHNICAL QUALITY: The study quality was technically difficult secondary to body habitus. INDICATION: afib RHYTHM DURING PROCEDURE: The patient was in normal sinus rhythm. INTERPRETATIONS: LEFT VENTRICLE: The left ventricle is normal size. There is moderate concentric left ventricular hypertrophy. The interventricular septum is measured at 1.4 cm and the left ventricular posterior wall is measured at 1.6 cm during end diastole. Left ventricular systolic function is normal. The ejection fraction is estimated to be 60-65%. There are no obvious focal wall motion abnormalities noted but poor endocardial definition reduces the sensitivity for the detection of such. Assessment of diastolic parameters indicates normal left ventricular diastolic function and normal filling pressures. RIGHT VENTRICLE: The right ventricle is grossly normal size. The right ventricle grossly appears normal in size with probable normal systolic function. ATRIA: The left atrium grossly appears normal in size. The right atrium is mildly dilated. The interatrial septum is intact with no evidence for an atrial septal defect. MITRAL VALVE: The mitral valve is grossly normal. There is no mitral regurgitation noted. AORTIC VALVE: The aortic valve is trileaflet. Aortic valve opens well. The aortic valve is slightly calcified. There is no evidence of significant valvular stenosis. TRICUSPID VALVE: The tricuspid valve is not well visualized, but is grossly normal. There is trace regurgitation. Pulmonary arteries could not be estimated because of the lack of a measurable TR jet velocity. PULMONIC VALVE: The pulmonic valve is not well seen but is grossly normal. There is trace pulmonic regurgitation. GREAT VESSELS: The aortic root is normal size at 3.9 cm. The ascending aorta is mildly enlarged at 3.9 cm. The inferior vena cava was not well visualized. PERICARDIUM: There is no pericardial effusion. IMPRESSION: 1. The left ventricle is normal size. There is moderate concentric left ventricular hypertrophy. LV systolic function is normal with an estimated ejection fraction of 60-65%. There are no obvious focal wall motion abnormalities. 2. The right ventricle is grossly normal size with probable normal systolic function. 3. The left atrium grossly appears normal in size. The right atrium is mildly dilated. 4. The aortic root is normal size. 5. There is no evidence of significant valvular heart disease.
[2016-02-15 18:32] VITALS: BP 125/73
[2016-02-15 22:25] VITALS: BP 128/69
--- NOTE | 2016-02-15 23:02 | Progress Note ---
Subjective General patient say s he is feling better then before Constitutional Denies: Fever, Chills, Sweats, Weakness. Eyes Denies: Vision Change, Conjunctival Inflammation. Respiratory Cough, SOB w/exertion. Denies: Wheezing, Hemoptysis, Pleuritic Pain. Cardiovascular Denies: Chest Pain, Palpitations, Orthopnea, PND, Edema. Gastrointestinal Denies: Nausea, Vomiting, Abdominal Pain, Diarrhea, Constipation, Melena. Genitourinary Denies: Dysuria, Frequency, Incontinence, Hematuria, Retention. Musculoskeletal Denies: Back Pain. Neurological Denies: Weakness, Numbness, Incoordination, Change in speech, Confusion, Seizures. Physical Exam Vital Signs / I&Os Vital Signs Date Time Temp Pulse Resp B/P Pulse O2 O2 Flow FiO2 Ox Delivery Rate 02/14 2225 98.6 64 24 128/69 96 Nasal 3.0 Cannula 02/14 2030 3.0 02/14 1832 99.7 61 26 125/73 92 Nasal 3.0 Cannula 02/14 1521 98.4 63 20 132/84 95 Nasal 3.0 Cannula 02/14 1425 64 02/14 1026 98.4 62 26 123/68 95 Nasal 3.0 Cannula 02/14 0800 Nasal 3.0 Cannula 02/14 0744 3.0 02/14 0720 97.5 64 25 137/73 91 Nasal 3.0 Cannula 02/14 0331 98.1 64 24 138/79 95 Mask 3.0 02/13 2327 98.8 65 24 148/71 93 Nasal 3.0 Cannula I&O 02/13 0800 02/13 1600 02/14 0000 Intake Total 240 600 660 Output Total 7491 718 7573 Balance -1110 -250 -590 General Appearance Alert, Oriented X3, No acute distress HEENT Normal exam, PERRLA, Moist mucous membranes Lungs Clear to auscultation Neck Normal exam, No JVD Cardiovascular Regular rate and rhythm, Normal S1 and S2 Abdomen Normal bowel sounds, Soft, No tenderness, No guarding Extremities bilateral lower extrmity oedema improved Neurological No lateralizing signs LAB Results Laboratory Tests 02/14 02/14 02/14 0455 0500 0500 Chemistry Plasma Sodium (136 - 145 mmol/L) 142 Plasma Potassium (3.5 - 5.1 mmol/L) 4.2 Plasma Chloride (98 - 107 mmol/L) 108 CO2 (Enzymatic) (21 - 32 mmol/L) 30 BUN (7 - 18 mg/dL) 38 Creatinine (0.6 - 1.3 mg/dL) 1.2 Est GFR ( Amer) (mL/min) >60 Est GFR (Non-Af Amer) (mL/min) >60 Glucose (70 - 110 mg/dL) 197 Hemoglobin A1c % (4.5 - 6.2 %) 8.7 Plasma Calcium (8.5 - 10.1 mg/dL) 8.5 Plasma Magnesium (1.8 - 2.4 mg/dL) 2.0 Procalcitonin (0 - 0.5 ng/mL) <0.5 Hematology WBC (4.5 - 11.5 K/uL) 13.3 RBC (4.50 - 5.90 M/uL) 3.59 Hgb (13.5 - 17.5 gm/dL) 11.8 Hct (41.0 - 53.0 %) 36.0 MCV (80 - 100 fL) 100 MCH (26 - 34 pg) 33 RDW (11.6 - 14.8 %) 13.7 Neut % (Auto) (50 - 75 %) 54.8 Lymph % (Auto) (25 - 40 %) 29.8 [place] % (Auto) (3 - 14 %) 10.4 Eos % (Auto) (0 - 4 %) 4.6 Baso % (Auto) (0 - 2 %) 0.4 Plt Count, EDTA (150 - 400 K/uL) 219 PUBS MCHC (31 - 37 g/dL) 33 Assessment and Plan Problem List 1. Anasarca Plan improving low albumin from malnutrition ECHO with normal EF change IV lasix to po lasix 2. Atrial fibrillation with RVR Plan improved, now in sinus rhythm on xarelto 3. Hypertension Status Chronic Onset Date Unknown Plan BP well controlled c/w urrent meds 4. Diabetes Status Chronic Onset Date Unknown Plan BS on higher side resume home dose of lantus c/w sliding scale insulin E&M Codes Rounding: Inpt-Moderate/[id number]
[2016-02-16 01:50] VITALS: BP 132/72
[2016-02-16 07:16] VITALS: BP 141/84
[2016-02-16 10:55] VITALS: BP 146/90
[2016-02-16 15:08] VITALS: BP 144/87
--- NOTE | 2016-02-16 15:53 | DIAGNOSTIC IMAGING REPORT ---
PROCEDURE: CTA THORAX WITH CONTRAST INDICATION: Hypoxia, initial encounter TECHNIQUE: 100 ml of Isovue 370 was injected intravenously and axial images were obtained of the entire thorax with 3D sagittal and coronal MIP reconstructions. The patient was scanned a second time. COMPARISON: Chest x-ray 02/11/2016 and CTA chest 09/07/2011. FINDINGS: Suboptimal opacification of the pulmonary arteries. There are no large central prior emboli cannot exclude small peripheral emboli. Lungs are clear. No adenopathy or effusion. No aortic dissection or aneurysm. Coronary atherosclerosis. Normal heart size. Chronic small pericardial effusion. Cholecystectomy. Mild degenerative changes of the spine. IMPRESSION: 1. Suboptimal opacification of the pulmonary arteries. There are no central pulmonary emboli but cannot exclude small peripheral emboli . Consider VQ scan if clinically warranted. 2. Chronic small pericardial effusion 3. Cholecystectomy 4. Results discussed with Dr. Byrnes
--- NOTE | 2016-02-16 17:24 | Progress Note ---
Subjective General Patient seen at the bedside, still sob, low sats on room air Constitutional Denies: Fever, Chills, Sweats. Eyes Denies: Conjunctival Inflammation, Eyelid Inflammation, Redness. Respiratory Denies: SOB w/exertion, Wheezing, Pleuritic Pain. Cardiovascular Orthopnea, PND, Edema. Denies: Chest Pain, Palpitations, Light-headedness. Gastrointestinal Denies: Nausea, Vomiting, Abdominal Pain, Diarrhea, Constipation. Neurological Denies: Weakness, Numbness, Incoordination, Change in speech, Confusion, Seizures. Physical Exam Vital Signs / I&Os Vital Signs Date Time Temp Pulse Resp B/P Pulse O2 O2 Flow FiO2 Ox Delivery Rate 02/15 1508 98.8 63 24 144/87 96 Nasal 3.0 Cannula 02/15 1455 68 02/15 1055 98.2 68 21 146/90 90 Nasal 3.0 Cannula 02/15 0745 Nasal 3.0 Cannula 02/15 0716 99.0 62 26 141/84 94 Nasal 3.0 Cannula 02/15 0150 98.2 59 28 132/72 95 Nasal 3.0 Cannula 02/14 2225 98.6 64 24 128/69 96 Nasal 3.0 Cannula 02/14 2030 3.0 02/14 1832 99.7 61 26 125/73 92 Nasal 3.0 Cannula I&O 02/14 0800 02/14 1600 02/15 0000 Intake Total 360 360 Output Total 900 1300 Balance -900 360 -940 General Appearance Alert, Oriented X3, No acute distress HEENT Atraumatic, PERRLA, Moist mucous membranes Lungs bilateral clear sounds Neck No JVD Cardiovascular Regular rate and rhythm, Normal S1 and S2 Abdomen Normal bowel sounds, Soft, No tenderness, No guarding Extremities No edema Neurological No lateralizing signs LAB Results Laboratory Tests 02/15 1062 Chemistry Plasma Sodium (136 - 145 mmol/L) 140 Plasma Potassium (3.5 - 5.1 mmol/L) 4.2 Plasma Chloride (98 - 107 mmol/L) 108 CO2 (Enzymatic) (21 - 32 mmol/L) 28 BUN (7 - 18 mg/dL) 46 Creatinine (0.6 - 1.3 mg/dL) 1.3 Est GFR ( Amer) (mL/min) >60 Est GFR (Non-Af Amer) (mL/min) 59.85 Glucose (70 - 110 mg/dL) 185 Plasma Calcium (8.5 - 10.1 mg/dL) 8.6 Plasma Magnesium (1.8 - 2.4 mg/dL) 1.8 Imaging DATE OF EXAM(S): 02/16/16 PROCEDURE: CTA THORAX WITH CONTRAST INDICATION: Hypoxia, initial encounter TECHNIQUE: 100 ml of Isovue 370 was injected intravenously and axial images were obtained of the entire thorax with 3D sagittal and coronal MIP reconstructions. The patient was scanned a second time. COMPARISON: Chest x-ray 02/11/2016 and CTA chest 09/07/2011. IMPRESSION: 1. Suboptimal opacification of the pulmonary arteries. There are no central pulmonary emboli but cannot exclude small peripheral emboli . Consider VQ scan if clinically warranted. 2. Chronic small pericardial effusion 3. Cholecystectomy Assessment and Plan Problem List 1. Hypoxia Plan ECHO no LVDysfunction noted Pts wells score is >4, r/o PE, CTA thorax inconclusive will get VQ scan c/w supplemental oxygen for now 2. Atrial fibrillation with RVR Plan improved 3. Anasarca Plan improved now with prerenal azotemia decrease dose of lasix iv albumin one dose NS bolus 4. Prerenal azotemia Plan monitor kidney function possibly from overdiuresis 5. Diabetes Plan stable 6. Hypertension Status Chronic Onset Date Unknown Plan c/w current management
[2016-02-16 18:44] VITALS: BP 160/92
--- NOTE | 2016-02-16 20:10 | DIAGNOSTIC IMAGING REPORT ---
PROCEDURE: NM PULMONARY PERFUSION W/VENT INDICATION: Shortness of breath, suboptimal CT angiogram TECHNIQUE: 45 mCi of technetium-99m DTPA was aerosolized and inhaled. 6 mCi technetium-99m MAA was injected intravenously. Ventilation and perfusion images were obtained in the AP, PA, right lateral, left lateral, M[place], EARLE, RPO and LPO positions. COMPARISON: Chest x-ray 02/16/[address] pulmonary angiogram 02/16/2016 FINDINGS: Normal perfusion and ventilation without filling defects. IMPRESSION: 1. Normal VQ scan. No evidence of a pulmonary embolus. 2. Results discussed with Dr. Chowdary
--- NOTE | 2016-02-16 21:05 | DIAGNOSTIC IMAGING REPORT ---
PROCEDURE: XR CHEST 2 VIEW INDICATION: PULMONARY EMBOLUS TECHNIQUE: PA and lateral views. COMPARISON: There is a CTA thorax (02/16/2016)) and chest x-ray (02/11/2016). FINDINGS: Allowing for suboptimal inspiration, lungs are clear. Heart and mediastinum are normal. Thorax is normal. IMPRESSION: 1. Negative chest.
[2016-02-16 23:16] VITALS: BP 150/74; BP 450/74
[2016-02-17 02:15] VITALS: BP 143/77
[2016-02-17 06:50] VITALS: BP 156/77
[2016-02-17] MEDS ORDERED: LANTUS SOL100 UNITS/ SC (10:21)
[2016-02-17] MEDS ORDERED: FUROSEMIDE20 MG PO (10:21)
[2016-02-17] MEDS ORDERED: ATENOLOL25 MG PO ×2 (10:21→11:24)
--- NOTE | 2016-02-17 10:32 | Provider's Discharge Care Plan ---
Problem, Goal, Plan Problem List 1. Anasarca Instructions: Follow up as directed, Increase activity level, Most likely from malnutrition, your ECHO report did not show any LV dysfuntion or pulmonary HTN Eat low salt food Drink Boost 3 times daily for protein supplements 2. Hypoxia Instructions: You are at high risk for sleep apnea and needs to get sleeps study as an out patient 3. Atrial fibrillation with RVR Instructions: You are started on blood thinneR 4. Diabetes Instructions: bLOOD SUGARS WERE HIGH SO YOUR GLARGIEN ODSE AHS BEEN INCREASED TO 40 UNITS bid
[2016-02-17] MEDS ORDERED: XARELTO10 MG PO (10:40)
--- NOTE | 2016-02-22 10:25 | DISCHARGE SUMMARY ---
ADMIT DATE: 02/11/2016 DISCHARGE DATE: 02/17/2016 ADMITTING DIAGNOSIS: 1. New onset atrial fibrillation with rapid ventricular rate 2. Diabetes 3. Anasarca 4. Hypertension 5. History of stroke DISCHARGE DIAGNOSES: 1. Anasarca 2. Diabetes 3. One episode of atrial fibrillation with rapid ventricular rate 4. Hypertension 5. History of a stroke BRIEF HISTORY: A 60-year-old male patient who presented to [facility] Emergency Department after having significant swelling of scrotal area. He was having some swelling to the point of discomfort. This has been going on for the last 1 week or so and got to the point that he needed to come to the emergency department. He also complained of shortness of breath at the time of admission. HOSPITAL COURSE: The patient was admitted with anasarca most likely related to hypoproteinemia. For that, his medication pioglitazone and amlodipine were discontinued. He was treated with diuretics. He also was noted to have one episode of atrial fibrillation during hospitalization, which was controlled with AV candida and was started on anticoagulation. He continued to have shortness of breath, for which, acute coronary syndrome and pulmonary embolism ruled out. His echocardiogram showed normal LV function and pulmonary artery pressure. It is decided that his SOB might be related to possible sleep apnea. He is discharged home in stable condition on diuretics and blood thinner and he is recommended to have a sleep study for sleep apne. PHYSICAL EXAMINATION: VITAL SIGNS: At the time of discharge, blood pressure 156/77, pulse rate 68, temperature 98.2, respiratory rate 22, pulse oximetry 97. PHYSICAL APPEARANCE: The patient was alert, awake, and oriented x3. Head was atraumatic, normocephalic. LUNGS: Bilateral breath sounds present, clear. HEART: S1, S2 normal. ABDOMEN: Protuberant, soft, normal, nontender, nondistended. Bowel sounds present. EXTREMITIES: Edema LAB/IMAGING: At the time of discharge were WBC 13.3, hemoglobin 11.8, hematocrit 36, neutrophils 54.8, sodium 140, potassium 4.4, chloride 107, bicarbonate 27, BUN 37, creatinine 1.1. GFR more than 60. Glucose 250 mg. Calcium 9. Procalcitonin less than 0.5. Chest x-ray: Negative. Chest and thorax with contrast, suboptimal opacification of the pulmonary arteries. There is no central pulmonary emboli, but cannot exclude a small peripheral embolism. Chronic small pericardial infusion. V/Q scan: Normal VQ scan. No evidence of pulmonary embolus. A 2D echocardiogram, the left ventricle is normal size. There is moderate concentric left ventricular hypertrophy, left ventricular systolic function is normal with an estimated ejection fraction of 60-65%. There are no obvious focal wall motion abnormalities. The right ventricle is grossly normal size with probable normal systolic function. Left atrium grossly normal. The right atrium is mildly dilated. No significant valvular disease. DISCHARGE MEDICATIONS/INSTRUCTIONS: You were admitted with anasarca which is most likely from malnutrition/hypoproteinemia. You are at high risk for sleep apnea and need to get a sleep study as an outpatient. For Atrial fibrillation with rapid ventricular rate. You were started on a blood thinner. During [facility] stay, Your blood sugars were high, so your glargine dose has been increased to 40 units b.i.d.
== END 2016-02-17 11:55 | disposition home or self-care (01) | DRG 641 ==
LOC: ED SRH 14:29 → ACUTE2 SRH 20:20 → TRANS SRH 20:20 → CC SRH 21:02 → ACUTE2 SRH 21:02 → CC SRH 02-12 18:11
PROVIDERS: ADMIT Family Medicine
PROC: 3E0234Z Introduction of Serum, Toxoid and Vaccine into Muscle, Percutaneous Approach (ICD-10-PCS; principal; 2016-02-12)
DX: E46 Unspecified protein-calorie malnutrition (principal); I48.91 Unspecified atrial fibrillation; R09.02 Hypoxemia; R39.2 Extrarenal uremia; E11.65 Type 2 diabetes mellitus with hyperglycemia; Z23 Encounter for immunization; I10 Essential (primary) hypertension; Z79.4 Long term (current) use of insulin; K21.9 Gastro-esophageal reflux disease without esophagitis; I69.392 Facial weakness following cerebral infarction
CPT/HCPCS: 29257; 85241; 90004; 90047; 90074; 90098; 90100; 90616; 91286; 91320; 91588; 92010; 92235; 92530; 92610; 92720; 93004; 93020; 93140; 94001; 94060; 95059